=== PATIENT | male | born 1940 | race Native Hawaiian/Other Pacific Islander ===

== ENCOUNTER 2016-09-22 16:50 | Emergency (ER) | payer OTHER ==
[~2016-09-22] VITALS: Ht 175.3 cm; Wt 71.7 kg
== END 2016-09-22 19:45 | disposition home or self-care (01) ==
LOC: ED 16:50
PROC: 0HQGXZZ Repair Left Hand Skin, External Approach (ICD-10-PCS; principal; 2016-09-22)
DX: S61.213A Laceration without foreign body of left middle finger without damage to nail, initial encounter (principal); W20.8XXA Other cause of strike by thrown, projected or falling object, initial encounter; W31.89XA Contact with other specified machinery, initial encounter; Y92.098 Other place in other non-institutional residence as the place of occurrence of the external cause
CPT/HCPCS: 99283; J2001

== ENCOUNTER 2016-10-02 10:23 | Emergency (ER) | payer OTHER ==
[~2016-10-02] VITALS: Ht 170.2 cm; Wt 81.6 kg
== END 2016-10-02 11:30 | disposition home or self-care (01) ==
LOC: ED 10:23
DX: Z48.02 Encounter for removal of sutures (principal)

== ENCOUNTER 2016-10-05 10:59 | Emergency (ER) | payer OTHER ==
[~2016-10-05] VITALS: Ht 175.3 cm; Wt 72.1 kg
== END 2016-10-05 11:18 | disposition home or self-care (01) ==
LOC: ED 10:59
DX: Z48.02 Encounter for removal of sutures (principal)

== ENCOUNTER 2016-12-24 08:16 | Outpatient (CLI) | payer OTHER | END 2016-12-24 19:26 | disposition home or self-care (01) | LOC: LABW 08:16 | PROVIDERS: Nurse Practitioner Adult Health | DX: E78.2 Mixed hyperlipidemia (principal); Z79.899 Other long term (current) drug therapy; Z51.81 Encounter for therapeutic drug level monitoring | CPT/HCPCS: 36415; 80061; 80076 ==

== ENCOUNTER 2017-01-07 08:20 | Outpatient (CLI) | payer OTHER ==
[2017-01-07 08:52] LABS: POTASSIUM 4.6 mmol/L (3.6-5.2)
== END 2017-01-07 09:30 | disposition home or self-care (01) ==
LOC: LABW 08:20
PROVIDERS: Nurse Practitioner Adult Health
DX: Z79.01 Long term (current) use of anticoagulants (principal); Z79.899 Other long term (current) drug therapy; I48.0 Paroxysmal atrial fibrillation; R35.8 Other polyuria; Z51.81 Encounter for therapeutic drug level monitoring
CPT/HCPCS: 36415; 80048; 85610

== ENCOUNTER 2017-02-07 08:14 | Outpatient (CLI) | payer OTHER ==
[2017-02-07 08:52] LABS: PLATELET COUNT 129 K/uL (142-355)
[2017-02-07 09:09] LABS: POTASSIUM 4.1 mmol/L (3.6-5.2)
== END 2017-02-07 19:24 | disposition home or self-care (01) ==
LOC: LABW 08:14
PROVIDERS: Internal Medicine Nephrology
DX: N18.3 Chronic kidney disease, stage 3 (moderate) (principal)
CPT/HCPCS: 36415; 80069; 82570; 83970; 84155; 85027

== ENCOUNTER 2017-06-27 08:46 | Outpatient (CLI) | payer OTHER | END 2017-06-27 19:14 | disposition home or self-care (01) | LOC: LABW 08:46 | PROVIDERS: Nurse Practitioner Adult Health | DX: E78.2 Mixed hyperlipidemia (principal); Z79.899 Other long term (current) drug therapy; Z51.81 Encounter for therapeutic drug level monitoring | CPT/HCPCS: 36415; 80061; 80076 ==

== ENCOUNTER 2017-07-26 09:10 | Outpatient (CLI) | payer OTHER | END 2017-07-26 19:05 | disposition home or self-care (01) | LOC: LABW 09:10 | PROVIDERS: Nurse Practitioner Adult Health | DX: E78.2 Mixed hyperlipidemia (principal); Z79.899 Other long term (current) drug therapy; Z51.81 Encounter for therapeutic drug level monitoring; I48.0 Paroxysmal atrial fibrillation | CPT/HCPCS: 36415; 80061; 80076 ==

== ENCOUNTER 2018-01-30 08:39 | Outpatient (CLI) | payer OTHER ==
[2018-01-30 09:13] LABS: PLATELET COUNT 198 K/uL (142-355)
[2018-01-30 09:37] LABS: POTASSIUM 4.2 mmol/L (3.6-5.2)
== END 2018-01-30 23:01 | disposition home or self-care (01) ==
LOC: LABW 08:39
PROVIDERS: Internal Medicine Nephrology
DX: E78.2 Mixed hyperlipidemia (principal); Z79.899 Other long term (current) drug therapy; Z51.81 Encounter for therapeutic drug level monitoring; N18.3 Chronic kidney disease, stage 3 (moderate)
CPT/HCPCS: 36415; 80061; 80069; 80076; 82570; 83970; 84155; 85027

== ENCOUNTER 2018-05-22 08:11 | Outpatient (CLI) | payer OTHER ==
[2018-05-22 08:31] LABS: POTASSIUM 4.4 mmol/L (3.6-5.2)
== END 2018-05-22 19:19 | disposition home or self-care (01) ==
LOC: LABW 08:11
PROVIDERS: Internal Medicine Nephrology
DX: R60.1 Generalized edema (principal)
CPT/HCPCS: 36415; 80069

== ENCOUNTER 2018-07-05 08:49 | Outpatient (CLI) | payer OTHER | END 2018-07-05 19:19 | disposition home or self-care (01) | LOC: LABW 08:49 | PROVIDERS: Nurse Practitioner Adult Health | DX: I25.10 Atherosclerotic heart disease of native coronary artery without angina pectoris (principal); E78.2 Mixed hyperlipidemia; Z79.899 Other long term (current) drug therapy | CPT/HCPCS: 36415; 80061; 80076 ==

== ENCOUNTER 2018-11-20 09:14 | Outpatient (CLI) | payer OTHER ==
[2018-11-20 09:39] LABS: PLATELET COUNT 136 K/uL (142-355)
[2018-11-20 09:48] LABS: POTASSIUM 4.3 mmol/L (3.6-5.2)
== END 2018-11-20 20:21 | disposition home or self-care (01) ==
LOC: LABW 09:14
PROVIDERS: Internal Medicine Nephrology
DX: N18.3 Chronic kidney disease, stage 3 (moderate) (principal)
CPT/HCPCS: 36415; 80069; 82570; 83970; 84155; 85027

== ENCOUNTER 2018-12-20 08:07 | Outpatient (CLI) | payer OTHER | END 2018-12-20 23:27 | disposition home or self-care (01) | LOC: LABW 08:07 | PROVIDERS: Nurse Practitioner Adult Health | DX: E78.2 Mixed hyperlipidemia (principal); Z79.899 Other long term (current) drug therapy | CPT/HCPCS: 36415; 80061; 80076 ==

== ENCOUNTER 2019-05-09 09:13 | Outpatient (CLI) | payer OTHER ==
[2019-05-09 09:45] LABS: POTASSIUM 4.8 mmol/L (3.6-5.2)
[2019-05-09 09:49] LABS: PLATELET COUNT 130 K/uL (142-355)
== END 2019-05-09 23:27 | disposition home or self-care (01) ==
LOC: LABW 09:13
PROVIDERS: Internal Medicine Nephrology
DX: N18.3 Chronic kidney disease, stage 3 (moderate) (principal)
CPT/HCPCS: 36415; 80069; 82570; 83970; 84155; 85027

== ENCOUNTER 2019-05-15 08:44 | Outpatient (CLI) | payer OTHER | END 2019-05-15 20:14 | disposition home or self-care (01) | LOC: NM 08:44 | DX: I25.10 Atherosclerotic heart disease of native coronary artery without angina pectoris (principal); R06.02 Shortness of breath; R06.09 Other forms of dyspnea | CPT/HCPCS: A9500; J2785 ==

== ENCOUNTER 2019-06-18 08:42 | Outpatient (CLI) | payer OTHER ==
[2019-06-18 09:44] LABS: POTASSIUM 4.6 mmol/L (3.6-5.2)
[2019-06-18 09:54] LABS: PLATELET COUNT 145 K/uL (142-355)
== END 2019-06-18 20:50 | disposition home or self-care (01) ==
LOC: LABW 08:42
PROVIDERS: Specialist
DX: Z01.810 Encounter for preprocedural cardiovascular examination (principal); E78.2 Mixed hyperlipidemia; Z79.899 Other long term (current) drug therapy; R07.2 Precordial pain; R93.1 Abnormal findings on diagnostic imaging of heart and coronary circulation
CPT/HCPCS: 36415; 80053; 80061; 82248; 85027

== ENCOUNTER 2019-12-11 10:02 | Outpatient (CLI) | payer OTHER | END 2019-12-11 21:47 | disposition home or self-care (01) | LOC: LABW 10:02 | PROVIDERS: Nurse Practitioner Adult Health | DX: E78.2 Mixed hyperlipidemia (principal); Z79.899 Other long term (current) drug therapy | CPT/HCPCS: 36415; 80061; 80076 ==

== ENCOUNTER 2020-02-16 08:51 | Outpatient (CLI) | payer OTHER ==
[2020-02-16 09:33] LABS: POTASSIUM 4.5 mmol/L (3.6-5.2)
[2020-02-16 09:51] LABS: PLATELET COUNT 127 K/uL (142-355)
== END 2020-02-16 19:11 | disposition home or self-care (01) ==
LOC: LABW 08:51
PROVIDERS: Internal Medicine Nephrology
DX: N18.3 Chronic kidney disease, stage 3 (moderate) (principal)
CPT/HCPCS: 36415; 80069; 82570; 83970; 85027

== ENCOUNTER 2020-03-19 09:20 | Outpatient (CLI) | payer OTHER ==
[2020-03-19 09:42] LABS: POTASSIUM 4.9 mmol/L (3.6-5.2)
== END 2020-03-19 23:57 | disposition home or self-care (01) ==
LOC: LABW 09:20
PROVIDERS: Internal Medicine Nephrology
DX: N18.3 Chronic kidney disease, stage 3 (moderate) (principal)
CPT/HCPCS: 36415; 80048; 82570; 84155

== ENCOUNTER 2020-04-17 09:53 | Outpatient (CLI) | payer OTHER ==
[2020-04-17 10:26] LABS: PLATELET COUNT 250 K/uL (142-355)
[2020-04-17 10:50] LABS: POTASSIUM 4.6 mmol/L (3.6-5.2)
== END 2020-04-17 20:04 | disposition home or self-care (01) ==
LOC: LABW 09:53
PROVIDERS: Internal Medicine
DX: R06.09 Other forms of dyspnea (principal); R53.83 Other fatigue; I25.10 Atherosclerotic heart disease of native coronary artery without angina pectoris; E78.49 Other hyperlipidemia; F03.90 Unspecified dementia, unspecified severity, without behavioral disturbance, psychotic disturbance, mood disturbance, and anxiety; Z79.899 Other long term (current) drug therapy; E53.8 Deficiency of other specified B group vitamins
CPT/HCPCS: 36415; 80053; 80061; 81000; 82607; 83735; 84443; 85027

== ENCOUNTER 2020-06-02 08:46 | Outpatient (CLI) | payer OTHER | END 2020-06-02 23:10 | disposition home or self-care (01) | LOC: LABW 08:46 | PROVIDERS: ATTEND Nurse Practitioner Adult Health | DX: I25.10 Atherosclerotic heart disease of native coronary artery without angina pectoris (principal); E78.2 Mixed hyperlipidemia; Z79.899 Other long term (current) drug therapy | CPT/HCPCS: 36415; 80061; 80076 ==

== ENCOUNTER 2020-10-28 09:39 | Outpatient (CLI) | payer OTHER ==
[2020-10-28 10:02] LABS: PLATELET COUNT 100 K/uL (142-355)
[2020-10-28 10:28] LABS: POTASSIUM 4.4 mmol/L (3.6-5.2)
== END 2020-10-28 21:08 | disposition home or self-care (01) ==
LOC: LABW 09:39
PROVIDERS: ATTEND Internal Medicine Nephrology
DX: N18.30 Chronic kidney disease, stage 3 unspecified (principal)
CPT/HCPCS: 36415; 80069; 82570; 83970; 84155; 85027

== ENCOUNTER 2020-11-28 09:42 | Outpatient (CLI) | payer OTHER | END 2020-11-28 22:40 | disposition home or self-care (01) | LOC: LABW 09:42 | PROVIDERS: ATTEND Nurse Practitioner Adult Health | DX: I25.10 Atherosclerotic heart disease of native coronary artery without angina pectoris (principal); E78.2 Mixed hyperlipidemia; Z79.899 Other long term (current) drug therapy | CPT/HCPCS: 36415; 80061; 80076 ==

== ENCOUNTER 2021-02-09 08:38 | Outpatient (CLI) | payer OTHER ==
[2021-02-09 09:02] LABS: PLATELET COUNT 98 K/uL (142-355)
[2021-02-09 09:12] LABS: POTASSIUM 4.2 mmol/L (3.6-5.2)
== END 2021-02-09 20:55 | disposition home or self-care (01) ==
LOC: LABW 08:38
PROVIDERS: ATTEND Internal Medicine Nephrology
DX: N18.31 Chronic kidney disease, stage 3a (principal)
CPT/HCPCS: 36415; 80069; 82570; 84155; 85027

== ENCOUNTER 2021-05-25 09:51 | Outpatient (CLI) | payer OTHER | END 2021-05-25 20:22 | disposition home or self-care (01) | LOC: LABW 09:51 | PROVIDERS: ATTEND Nurse Practitioner Adult Health | DX: E78.49 Other hyperlipidemia (principal); I25.10 Atherosclerotic heart disease of native coronary artery without angina pectoris; Z79.899 Other long term (current) drug therapy | CPT/HCPCS: 36415; 80061; 80076 ==

== ENCOUNTER 2021-10-27 10:48 | Outpatient (CLI) | payer OTHER ==
[2021-10-27 12:51] LABS: POTASSIUM 3.6 mmol/L (3.6-5.2)
== END 2021-10-27 19:43 | disposition home or self-care (01) ==
LOC: LAB 10:48
PROVIDERS: ATTEND Internal Medicine Nephrology
DX: N18.30 Chronic kidney disease, stage 3 unspecified (principal)
CPT/HCPCS: 80048

== ENCOUNTER 2021-11-16 09:19 | Outpatient (CLI) | payer OTHER | END 2021-11-16 18:56 | disposition home or self-care (01) | LOC: LABW 09:19 | PROVIDERS: ATTEND Nurse Practitioner Adult Health | DX: E78.49 Other hyperlipidemia (principal); Z79.899 Other long term (current) drug therapy | CPT/HCPCS: 36415; 80061; 80076 ==

== ENCOUNTER 2022-02-02 10:42 | Outpatient (CLI) | payer OTHER ==
[2022-02-02 11:12] LABS: PLATELET COUNT 152 K/uL (142-355)
[2022-02-02 11:15] LABS: POTASSIUM 4.2 mmol/L (3.6-5.2)
== END 2022-02-02 18:54 | disposition home or self-care (01) ==
LOC: LABW 10:42
PROVIDERS: ATTEND Nurse Practitioner Family
DX: D61.818 Other pancytopenia (principal)
CPT/HCPCS: 36415; 80053; 85027

== ENCOUNTER 2022-03-01 09:21 | Outpatient (CLI) | payer OTHER ==
[2022-03-01 09:46] LABS: PLATELET COUNT 107 K/uL (142-355)
[2022-03-01 10:01] LABS: POTASSIUM 4.8 mmol/L (3.6-5.2)
== END 2022-03-01 19:30 | disposition home or self-care (01) ==
LOC: LABW 09:21
PROVIDERS: ATTEND Internal Medicine Nephrology
DX: N18.32 Chronic kidney disease, stage 3b (principal)
CPT/HCPCS: 36415; 80069; 82570; 83970; 84156; 85027

== ENCOUNTER 2022-03-09 11:27 | Outpatient (CLI) | payer OTHER | END 2022-03-09 19:01 | disposition home or self-care (01) | LOC: CT 11:27 | PROVIDERS: ATTEND Orthopaedic Surgery | DX: M54.59 Other low back pain (principal) ==

== ENCOUNTER 2022-04-28 08:31 | Outpatient (CLI) | payer OTHER ==
[2022-04-28 08:47] LABS: PLATELET COUNT 112 K/uL (142-355)
[2022-04-28 09:00] LABS: POTASSIUM 4.4 mmol/L (3.6-5.2)
== END 2022-04-28 19:29 | disposition home or self-care (01) ==
LOC: LABW 08:31
PROVIDERS: ATTEND Nurse Practitioner Family
DX: D61.818 Other pancytopenia (principal)
CPT/HCPCS: 80053; 85027

== ENCOUNTER 2022-05-17 09:41 | Outpatient (CLI) | payer OTHER | END 2022-05-17 19:33 | disposition home or self-care (01) | LOC: LABW 09:41 | PROVIDERS: ATTEND Nurse Practitioner Adult Health | DX: E78.49 Other hyperlipidemia (principal); I10 Essential (primary) hypertension; I25.10 Atherosclerotic heart disease of native coronary artery without angina pectoris | CPT/HCPCS: 36415; 80061; 80076 ==

== ENCOUNTER 2022-07-27 09:20 | Outpatient (CLI) | payer OTHER ==
[2022-07-27 09:54] LABS: PLATELET COUNT 137 K/uL (142-355)
[2022-07-27 10:07] LABS: POTASSIUM 4.1 mmol/L (3.6-5.2)
== END 2022-07-27 20:33 | disposition home or self-care (01) ==
LOC: LABW 09:20
PROVIDERS: ATTEND Internal Medicine Hematology & Oncology
DX: D61.818 Other pancytopenia (principal)
CPT/HCPCS: 36415; 80053; 85027

== ENCOUNTER 2022-08-02 07:50 | Outpatient (CLI) | payer OTHER ==
[~2022-08-02] VITALS: Ht 175.3 cm; Wt 69.4 kg
== END 2022-08-02 19:01 | disposition home or self-care (01) ==
LOC: NM 07:50
PROVIDERS: ATTEND Specialist
DX: I25.10 Atherosclerotic heart disease of native coronary artery without angina pectoris (principal); I10 Essential (primary) hypertension
CPT/HCPCS: A9500; J2785

== ENCOUNTER 2022-10-22 13:19 | Outpatient (CLI) | payer OTHER | END 2022-10-22 19:43 | disposition home or self-care (01) | LOC: CT 13:19 | PROVIDERS: ATTEND Physical Medicine & Rehabilitation Pain Medicine | DX: M54.12 Radiculopathy, cervical region (principal); M48.062 Spinal stenosis, lumbar region with neurogenic claudication ==

== ENCOUNTER 2022-11-01 10:14 | Outpatient (CLI) | payer OTHER ==
[2022-11-01 10:46] LABS: PLATELET COUNT 136 K/uL (142-355)
[2022-11-01 11:19] LABS: POTASSIUM 4.6 mmol/L (3.6-5.2)
== END 2022-11-01 21:12 | disposition home or self-care (01) ==
LOC: LABW 10:14
PROVIDERS: ATTEND Nurse Practitioner Family
DX: D61.818 Other pancytopenia (principal); R79.89 Other specified abnormal findings of blood chemistry
CPT/HCPCS: 36415; 80053; 82607; 82728; 82746; 83540; 83550; 85027

== ENCOUNTER 2023-02-09 09:44 | Outpatient (CLI) | payer OTHER | END 2023-02-09 21:02 | disposition home or self-care (01) | LOC: LAB 09:44 | PROVIDERS: ATTEND Internal Medicine | DX: R19.7 Diarrhea, unspecified (principal) | CPT/HCPCS: 82272; 83630; 87015; 87045; 87324; 87328; 87329; 87449; 87899 ==

== ENCOUNTER 2023-03-01 09:25 | Outpatient (CLI) | payer OTHER ==
[2023-03-01 10:04] LABS: PLATELET COUNT 121 K/uL (142-355)
[2023-03-01 10:34] LABS: POTASSIUM 3.8 mmol/L (3.6-5.2)
== END 2023-03-01 18:54 | disposition home or self-care (01) ==
LOC: LABW 09:25
PROVIDERS: ATTEND Internal Medicine Nephrology
DX: N18.32 Chronic kidney disease, stage 3b (principal); R79.89 Other specified abnormal findings of blood chemistry; D61.818 Other pancytopenia
CPT/HCPCS: 36415; 80053; 82570; 82607; 82728; 82746; 83540; 83550; 83970; 84100; 84156; 85027